=== PATIENT | male | born 1930 | race Caucasian/White ===

== ENCOUNTER 2016-12-06 10:20 | Inpatient (IN) | payer MEDICARE ==
[~2016-12-06] VITALS: Ht 167.6 cm; Wt 65.7 kg
[~2016-12-06 10:20] MED LIST: ALEN70TA3 PO; ASPI-13; ASPI-621 PO; CARV12.52 PO; CARV6.2512 PO; DIGO250T PO; DIGO250T6 PO; DOCU-144 PO; ENAL5TAB PO; FURO20TA3 PO; HYDR-3240 PO; ISOS30TA19 PO; MULT-6 PO; NITR0.4T8 PO; PANT40TA3 PO; PANT40TA5 PO; POTA20TA6 PO; PRAV40TA2 PO; PRAV80TA PO; TAMS-11 PO; VIT1CAPS11 PO
[2016-12-06] MEDS ORDERED: SODIUM CHLORIDE FLUSH 10ML SYR IVF ONE (11:00)
[2016-12-06 11:44] LABS: BLOOD UREA NITROGEN 19 mg/dL (7-18)
[2016-12-06] MEDS ORDERED: SODIUM CHLORIDE FLUSH 10ML SYR IVF PRN (12:00)
[2016-12-06] MEDS ORDERED: VIT1CAPS16 PO (12:12)
[2016-12-06] MEDS ORDERED: morphine SULFATE 10 MG/ML, 1ML IVPush PRN (13:30)
[2016-12-06] MEDS ORDERED: hydrALAzine 20 MG/ML, 1ML IVPush PRN (13:30)
[2016-12-06] MEDS ORDERED: POLYETHYLENE GLYCOL 17 GM PACKET PO PRN (13:30)
[2016-12-06] MEDS ORDERED: MAALOX/HYOSCYAMINE/LIDOCAINE 45 ML BOTTLE PO PRN (13:30)
[2016-12-06] MEDS ORDERED: ONDANSETRON 2MG/ML, 2ML IVPush PRN (13:30)
[2016-12-06] MEDS ORDERED: HYDROcodone/APAP 5/325 TABLET PO PRN (13:30)
[2016-12-06] MEDS ORDERED: DOCUSATE 100 MG CAPSULE PO PRN (13:30)
[2016-12-06] MEDS ORDERED: ALENDRONATE 70 MG TABLET PO SCH (13:30)
[2016-12-06] MEDS ORDERED: ACETAMINOPHEN 325 MG TABLET PO PRN (13:30)
[2016-12-06] MEDS ORDERED: ONDANSETRON ODT 4 MG PO PRN (13:30)
[2016-12-06] MEDS ORDERED: BISACODYL 10 MG SUPP PR PRN (13:30)
[2016-12-06 13:46] VITALS: BP 133/69
[2016-12-06] MEDS ORDERED: FUROSEMIDE 40 MG/4 ML IV ONE (15:00)
[2016-12-06] MEDS ORDERED: ALBUTEROL/IPRATROPIUM 2.5MG/0.5MG, 3 ML NPPB PRN (15:00)
[2016-12-06] MEDS: LEVOFLOXACIN/PMX 750MG/150ML 150 ML IV SCH (16:41)
[2016-12-06] MEDS: PANTOPROZOLE 40MG TABLET PO SCH (16:41)
[2016-12-06] MEDS: ENOXAPARIN 40 MG/0.4 ML SQ SCH (16:41)
[2016-12-06 17:06] LABS: IS PT STATUS REG ER OR PRE ER? NO
[2016-12-06] MEDS: FLUTICASONE/VILANTEROL 100-25MCG/INH INH SCH (18:31)
[2016-12-06 20:00] VITALS: BP 131/72
[2016-12-06] MEDS ORDERED: PANTOPROZOLE 40MG TABLET PO SCH (21:00)
[2016-12-06] MEDS: ALBUTEROL/IPRATROPIUM 2.5MG/0.5MG, 3 ML NPPB SCH (21:20)
[2016-12-06] MEDS: ENALAPRIL 10 MG TABLET PO SCH (21:59)
[2016-12-06] MEDS: CARVEDILOL 12.5 MG TABLET PO SCH (21:59)
[2016-12-06] MEDS: DIGOXIN 0.25 MG TABLET PO SCH (21:59)
[2016-12-06] MEDS: GUAIFENESIN ER 600 MG TABLET PO SCH (21:59)
[2016-12-06] MEDS: PRAVASTATIN 40 MG TABLET PO SCH (22:00)
[2016-12-06 23:49] LABS: IS PT STATUS REG ER OR PRE ER? NO
[2016-12-07] MEDS: TAMSULOSIN 0.4 MG CAP.ER.24H PO SCH ×3 (01:12→21:18)
[2016-12-07 01:25] VITALS: BP 153/78
[2016-12-07 02:00] VITALS: BP 153/78
[2016-12-07 06:40] LABS: BLOOD UREA NITROGEN 19 mg/dL (7-18)
[2016-12-07 06:45] LABS: ASPARTATE AMINO TRANSFERASE 11 U/L (15-37)
[2016-12-07 06:50] VITALS: BP 126/55
[2016-12-07] MEDS: ALBUTEROL/IPRATROPIUM 2.5MG/0.5MG, 3 ML NPPB SCH ×2 (07:01→19:56)
[2016-12-07] MEDS: ASPIRIN 81 MG TABLET EC PO SCH (08:36)
[2016-12-07] MEDS: MULTIVITAMIN 1 TABLET PO SCH (08:36)
[2016-12-07] MEDS: FUROSEMIDE 20 MG TABLET PO SCH (08:36)
[2016-12-07] MEDS: GUAIFENESIN ER 600 MG TABLET PO SCH ×2 (08:36→20:53)
[2016-12-07] MEDS: FLUTICASONE/VILANTEROL 100-25MCG/INH INH SCH (08:36)
[2016-12-07] MEDS: ISOSORBIDE DINITRATE 30 MG TABLET PO SCH (08:36)
[2016-12-07] MEDS: ENALAPRIL 10 MG TABLET PO SCH ×2 (08:36→20:53)
[2016-12-07] MEDS: CARVEDILOL 12.5 MG TABLET PO SCH ×2 (08:36→20:52)
[2016-12-07] MEDS: PANTOPROZOLE 40MG TABLET PO SCH ×2 (08:37→15:12)
[2016-12-07] MEDS ORDERED: TAMSULOSIN 0.4 MG CAP.ER.24H PO SCH (09:00)
[2016-12-07 13:00] VITALS: BP 118/68
[2016-12-07] MEDS: ENOXAPARIN 40 MG/0.4 ML SQ SCH (15:12)
[2016-12-07] MEDS: LEVOFLOXACIN/PMX 750MG/150ML 150 ML IV SCH (16:32)
[2016-12-07 19:26] VITALS: BP 116/44
[2016-12-07] MEDS: DIGOXIN 0.25 MG TABLET PO SCH (20:52)
[2016-12-07] MEDS: PRAVASTATIN 40 MG TABLET PO SCH (20:53)
[2016-12-07 22:25] VITALS: BP 126/64
[2016-12-07] MEDS ORDERED: NITROGLYCERIN 0.4 MG BOTTLE (25 TABS) SL PRN (22:30)
[2016-12-08 02:17] VITALS: BP 122/68
[2016-12-08 05:22] LABS: BLOOD UREA NITROGEN 18 mg/dL (7-18)
[2016-12-08 07:00] VITALS: BP 129/64
[2016-12-08] MEDS: FLUTICASONE/VILANTEROL 100-25MCG/INH INH SCH (08:33)
[2016-12-08] MEDS: CARVEDILOL 12.5 MG TABLET PO SCH ×2 (08:34→20:08)
[2016-12-08] MEDS: PANTOPROZOLE 40MG TABLET PO SCH ×2 (08:34→18:28)
[2016-12-08] MEDS: ISOSORBIDE DINITRATE 30 MG TABLET PO SCH (08:35)
[2016-12-08] MEDS: GUAIFENESIN ER 600 MG TABLET PO SCH ×2 (08:35→20:08)
[2016-12-08] MEDS: ASPIRIN 81 MG TABLET EC PO SCH (08:35)
[2016-12-08] MEDS: MULTIVITAMIN 1 TABLET PO SCH (08:36)
[2016-12-08] MEDS: FUROSEMIDE 20 MG TABLET PO SCH (08:36)
[2016-12-08] MEDS: ENALAPRIL 10 MG TABLET PO SCH ×2 (08:37→20:08)
[2016-12-08] MEDS: ALBUTEROL/IPRATROPIUM 2.5MG/0.5MG, 3 ML NPPB SCH ×2 (09:50→20:08)
[2016-12-08] MEDS ORDERED: TEMAZEPAM 15 MG CAPSULE PO PRN (10:30)
[2016-12-08] MEDS ORDERED: SODIUM CHLORIDE NASAL SPRAY 45ML BOTTLE NAS PRN (10:30)
[2016-12-08] MEDS: COPPER HOMEMEDPO SCH ×2 (11:20→20:34)
[2016-12-08] MEDS: ZNOX HOMEMEDPO SCH ×2 (11:20→20:34)
[2016-12-08] MEDS: VITE AC HOMEMEDPO SCH ×2 (11:20→20:34)
[2016-12-08] MEDS: VIT C HOMEMEDPO SCH ×2 (11:20→20:34)
[2016-12-08] MEDS: [UNRECOGNIZED DRUG - OTHER] HOMEMEDPO SCH ×2 (11:20→20:34)
[2016-12-08] MEDS: LUT HOMEMEDPO SCH ×2 (11:20→20:34)
[2016-12-08 14:16] VITALS: BP 115/50
[2016-12-08] MEDS: ENOXAPARIN 40 MG/0.4 ML SQ SCH (15:20)
[2016-12-08] MEDS: FLUTICASONE NASAL SPRAY 16GM NAS SCH (18:28)
[2016-12-08] MEDS: LEVOFLOXACIN/PMX 750MG/150ML 150 ML IV SCH (18:28)
[2016-12-08 18:39] VITALS: BP 122/42
[2016-12-08] MEDS: DIGOXIN 0.25 MG TABLET PO SCH (20:08)
[2016-12-08] MEDS: PRAVASTATIN 40 MG TABLET PO SCH (20:08)
[2016-12-08] MEDS: TAMSULOSIN 0.4 MG CAP.ER.24H PO SCH (20:08)
[2016-12-09 03:12] VITALS: BP 130/45
[2016-12-09 08:00] VITALS: BP 128/50
[2016-12-09] MEDS: ZNOX HOMEMEDPO SCH (09:07)
[2016-12-09] MEDS: ISOSORBIDE DINITRATE 30 MG TABLET PO SCH (09:07)
[2016-12-09] MEDS: VITE AC HOMEMEDPO SCH (09:07)
[2016-12-09] MEDS: ENALAPRIL 10 MG TABLET PO SCH (09:07)
[2016-12-09] MEDS: COPPER HOMEMEDPO SCH (09:07)
[2016-12-09] MEDS: LUT HOMEMEDPO SCH (09:07)
[2016-12-09] MEDS: MULTIVITAMIN 1 TABLET PO SCH (09:07)
[2016-12-09] MEDS: VIT C HOMEMEDPO SCH (09:07)
[2016-12-09] MEDS: [UNRECOGNIZED DRUG - OTHER] HOMEMEDPO SCH (09:07)
[2016-12-09] MEDS: FLUTICASONE NASAL SPRAY 16GM NAS SCH (09:07)
[2016-12-09] MEDS: GUAIFENESIN ER 600 MG TABLET PO SCH (09:07)
[2016-12-09] MEDS: FUROSEMIDE 20 MG TABLET PO SCH (09:07)
[2016-12-09] MEDS: ASPIRIN 81 MG TABLET EC PO SCH (09:07)
[2016-12-09] MEDS: PANTOPROZOLE 40MG TABLET PO SCH (09:07)
[2016-12-09] MEDS: FLUTICASONE/VILANTEROL 100-25MCG/INH INH SCH (09:08)
[2016-12-09] MEDS: CARVEDILOL 12.5 MG TABLET PO SCH (09:10)
[2016-12-09] MEDS ORDERED: LEVO750T26 PO (09:32)
[2016-12-09] MEDS: ALBUTEROL/IPRATROPIUM 2.5MG/0.5MG, 3 ML NPPB SCH (10:00)
[2016-12-09] MEDS ORDERED: PNEUMOCOCCAL 23 VACCINE IM-VACC ONE (10:30)
[2016-12-09 13:37] VITALS: BP 125/67
[2016-12-09] MEDS ORDERED: ENOXAPARIN 40 MG/0.4 ML SQ SCH (15:00)
[2016-12-14] MEDS ORDERED: ALENDRONATE 70 MG TABLET PO SCH (06:30)
== END 2016-12-09 14:26 | disposition home or self-care (01) | DRG 291 ==
LOC: ED 11:05 → EDIP 11:41 → 5SO 13:38 → 4WST 12-08 13:03 → UNDODISIN 12-09 14:26
PROVIDERS: ADMIT Internal Medicine; ATTEND Family Medicine
DX: I11.0 Hypertensive heart disease with heart failure (principal); J18.9 Pneumonia, unspecified organism; J96.21 Acute and chronic respiratory failure with hypoxia; J44.0 Chronic obstructive pulmonary disease with (acute) lower respiratory infection; E87.3 Alkalosis; I50.42 Chronic combined systolic (congestive) and diastolic (congestive) heart failure; D63.8 Anemia in other chronic diseases classified elsewhere; E87.8 Other disorders of electrolyte and fluid balance, not elsewhere classified; I73.9 Peripheral vascular disease, unspecified; M81.0 Age-related osteoporosis without current pathological fracture; E78.00 Pure hypercholesterolemia, unspecified; E78.5 Hyperlipidemia, unspecified; H35.30 Unspecified macular degeneration; H91.10 Presbycusis, unspecified ear; H91.93 Unspecified hearing loss, bilateral; I25.119 Atherosclerotic heart disease of native coronary artery with unspecified angina pectoris; I25.2 Old myocardial infarction; I25.5 Ischemic cardiomyopathy; I48.0 Paroxysmal atrial fibrillation; K21.9 Gastro-esophageal reflux disease without esophagitis; Z85.46 Personal history of malignant neoplasm of prostate; Z87.891 Personal history of nicotine dependence; Z88.0 Allergy status to penicillin; Z88.2 Allergy status to sulfonamides; Z90.49 Acquired absence of other specified parts of digestive tract; Z95.0 Presence of cardiac pacemaker; Z95.1 Presence of aortocoronary bypass graft; Z99.81 Dependence on supplemental oxygen; I49.5 Sick sinus syndrome; K31.819 Angiodysplasia of stomach and duodenum without bleeding
CPT/HCPCS: 36415; 71010; 80048; 80053; 80162; 81003; 82040; 83605; 83735; 83880; 84145; 84484; 85025; 87040; 87070; 87205; 90732; 93005; 93306; 94640; 99285; J1650; J1940; J1956; J7620

== ENCOUNTER 2017-01-02 10:38 | Inpatient (IN) | payer MEDICARE ==
[~2017-01-02] VITALS: Ht 167.6 cm; Wt 69.3 kg
[~2017-01-02 10:38] MED LIST changes: +LEVO750T26 PO; +VIT1CAPS16 PO
[2017-01-02] MEDS ORDERED: SODIUM CHLORIDE FLUSH 10ML SYR IVF ONE ×2 (11:30→13:00)
[2017-01-02 11:44] LABS: ASPARTATE AMINO TRANSFERASE 18 U/L (15-37); BLOOD UREA NITROGEN 20 mg/dL (7-18)
[2017-01-02] MEDS ORDERED: LEVOFLOXACIN/PMX 750MG/150ML 150 ML ONE (12:30)
[2017-01-02] MEDS ORDERED: CARV6.2512 PO (12:45)
[2017-01-02] MEDS ORDERED: ENAL5TAB PO (12:45)
[2017-01-02] MEDS ORDERED: LEVOFLOXACIN/PMX 750MG/150ML 150 ML IVPB ONE (13:00)
[2017-01-02] MEDS ORDERED: PHARMACY MAY ADJ FOR RENAL FX MC PRN (14:30)
[2017-01-02] MEDS ORDERED: DOCUSATE 100 MG CAPSULE PO PRN (14:30)
[2017-01-02] MEDS ORDERED: POLYETHYLENE GLYCOL 17 GM PACKET PO PRN (14:30)
[2017-01-02] MEDS ORDERED: BISACODYL 10 MG SUPP PR PRN (14:30)
[2017-01-02] MEDS ORDERED: ACETAMINOPHEN 325 MG TABLET PO PRN (14:30)
[2017-01-02] MEDS ORDERED: ONDANSETRON ODT 4 MG PO PRN (14:30)
[2017-01-02] MEDS ORDERED: NITROGLYCERIN 0.4 MG BOTTLE (25 TABS) SL SCH (14:30)
[2017-01-02] MEDS ORDERED: GUAIFENESIN/DM 200-20MG, 10ML UDC PO PRN (14:30)
[2017-01-02] MEDS ORDERED: ALBUTEROL/IPRATROPIUM 2.5MG/0.5MG, 3 ML ONE (15:29)
[2017-01-02] MEDS: ALBUTEROL/IPRATROPIUM 2.5MG/0.5MG, 3 ML NPPB SCH ×2 (15:40→19:24)
[2017-01-02] MEDS: HEPARIN 5,000 UNITS/ML, 1ML SQ SCH ×2 (17:03→22:20)
[2017-01-02 19:03] VITALS: BP 144/62
[2017-01-02] MEDS: TEMPLATE NON-FORMULARY MED. (Vit A/Vit C/Vit E/Zinc/Copper** (Preservision Areds Softgel HOMEMEDPO SCH (21:00)
[2017-01-02] MEDS: DIGOXIN 0.25 MG TABLET PO SCH (22:19)
[2017-01-02] MEDS: DOCUSATE 100 MG CAPSULE PO SCH (22:19)
[2017-01-02] MEDS: ENALAPRIL 5MG TABLET PO SCH (22:19)
[2017-01-02] MEDS: PRAVASTATIN 40 MG TABLET PO SCH (22:20)
[2017-01-02] MEDS: CARVEDILOL 6.25 MG TABLET PO SCH (22:20)
[2017-01-03] VITALS (7 sets, daily range): BP systolic 123–149; BP diastolic 47–66
[2017-01-03] MEDS: HEPARIN 5,000 UNITS/ML, 1ML SQ SCH ×3 (05:22→20:32)
[2017-01-03] MEDS: LEVOFLOXACIN/PMX 500MG/100ML 100 ML IV SCH (05:23)
[2017-01-03 06:12] LABS: BLOOD UREA NITROGEN 17 mg/dL (7-18)
[2017-01-03] MEDS: ALBUTEROL/IPRATROPIUM 2.5MG/0.5MG, 3 ML NPPB SCH ×3 (07:00→18:54)
[2017-01-03] MEDS ORDERED: TAMSULOSIN 0.4 MG CAP.ER.24H PO SCH (09:00)
[2017-01-03] MEDS: TEMPLATE NON-FORMULARY MED. (Vit A/Vit C/Vit E/Zinc/Copper** (Preservision Areds Softgel HOMEMEDPO SCH ×2 (09:00→20:12)
[2017-01-03] MEDS: ASPIRIN 81 MG TABLET EC PO SCH (09:51)
[2017-01-03] MEDS: ISOSORBIDE MONONITRATE ER 30 MG TABLET PO SCH (09:51)
[2017-01-03] MEDS: MULTIVITAMIN 1 TABLET PO SCH (09:51)
[2017-01-03] MEDS: CARVEDILOL 6.25 MG TABLET PO SCH ×2 (09:51→20:32)
[2017-01-03] MEDS: ENALAPRIL 5MG TABLET PO SCH ×2 (09:51→20:11)
[2017-01-03] MEDS: POTASSIUM CHLORIDE 10 MEQ TABLET.ER PO SCH (09:51)
[2017-01-03] MEDS: FUROSEMIDE 20 MG/2 ML IV SCH (09:51)
[2017-01-03 11:21] LABS: IS PT STATUS REG ER OR PRE ER? NO
[2017-01-03] MEDS ORDERED: ALBUTEROL/IPRATROPIUM 2.5MG/0.5MG, 3 ML ONE (14:12)
[2017-01-03 16:20] LABS: IS PT STATUS REG ER OR PRE ER? NO
[2017-01-03] MEDS: DOCUSATE 100 MG CAPSULE PO SCH (20:10)
[2017-01-03] MEDS: PRAVASTATIN 40 MG TABLET PO SCH (20:11)
[2017-01-03] MEDS: DIGOXIN 0.25 MG TABLET PO SCH (20:11)
[2017-01-03] MEDS: TAMSULOSIN 0.4 MG CAP.ER.24H PO SCH (20:50)
[2017-01-04 00:46] VITALS: BP 144/68
[2017-01-04 04:28] VITALS: BP 149/68
[2017-01-04] MEDS: LEVOFLOXACIN/PMX 500MG/100ML 100 ML IV SCH ×2 (04:35→09:02)
[2017-01-04] MEDS: HEPARIN 5,000 UNITS/ML, 1ML SQ SCH ×3 (04:35→20:11)
[2017-01-04 06:03] LABS: BLOOD UREA NITROGEN 17 mg/dL (7-18)
[2017-01-04 06:50] VITALS: BP 134/62
[2017-01-04] MEDS: ALBUTEROL/IPRATROPIUM 2.5MG/0.5MG, 3 ML NPPB SCH ×2 (06:55→19:15)
[2017-01-04] MEDS: TEMPLATE NON-FORMULARY MED. (Vit A/Vit C/Vit E/Zinc/Copper** (Preservision Areds Softgel HOMEMEDPO SCH ×2 (09:00→20:12)
[2017-01-04] MEDS: POTASSIUM CHLORIDE 10 MEQ TABLET.ER PO SCH (09:02)
[2017-01-04] MEDS: MULTIVITAMIN 1 TABLET PO SCH (09:02)
[2017-01-04] MEDS: ENALAPRIL 5MG TABLET PO SCH ×2 (09:02→20:12)
[2017-01-04] MEDS: ISOSORBIDE MONONITRATE ER 30 MG TABLET PO SCH (09:03)
[2017-01-04] MEDS: ASPIRIN 81 MG TABLET EC PO SCH (09:03)
[2017-01-04] MEDS: CARVEDILOL 6.25 MG TABLET PO SCH ×2 (09:03→20:11)
[2017-01-04] MEDS: FUROSEMIDE 20 MG/2 ML IV SCH (09:03)
[2017-01-04 13:24] VITALS: BP 122/56
[2017-01-04 16:36] VITALS: BP 119/64
[2017-01-04 18:14] VITALS: BP 135/56
[2017-01-04] MEDS ORDERED: ALBUTEROL/IPRATROPIUM 2.5MG/0.5MG, 3 ML ONE (19:14)
[2017-01-04] MEDS: PRAVASTATIN 40 MG TABLET PO SCH (20:11)
[2017-01-04] MEDS: TAMSULOSIN 0.4 MG CAP.ER.24H PO SCH (20:11)
[2017-01-04] MEDS: DOCUSATE 100 MG CAPSULE PO SCH (20:11)
[2017-01-04] MEDS ORDERED: TAMSULOSIN 0.4 MG CAP.ER.24H PO SCH ×2 (21:00)
[2017-01-05 01:24] VITALS: BP 150/63
[2017-01-05] MEDS ORDERED: SODIUM CHLORIDE NASAL SPRAY 45ML BOTTLE NAS PRN (03:30)
[2017-01-05] MEDS: HEPARIN 5,000 UNITS/ML, 1ML SQ SCH (04:01)
[2017-01-05 04:04] VITALS: BP 143/65
[2017-01-05] MEDS: ALBUTEROL/IPRATROPIUM 2.5MG/0.5MG, 3 ML NPPB SCH (05:40)
[2017-01-05 08:20] VITALS: BP 157/97
[2017-01-05] MEDS: LEVOFLOXACIN/PMX 500MG/100ML 100 ML IV SCH (08:48)
[2017-01-05] MEDS: ASPIRIN 81 MG TABLET EC PO SCH (08:48)
[2017-01-05] MEDS: CARVEDILOL 6.25 MG TABLET PO SCH (08:49)
[2017-01-05] MEDS: FUROSEMIDE 20 MG/2 ML IV SCH (08:49)
[2017-01-05] MEDS: MULTIVITAMIN 1 TABLET PO SCH (08:50)
[2017-01-05] MEDS: ENALAPRIL 5MG TABLET PO SCH (08:50)
[2017-01-05] MEDS: POTASSIUM CHLORIDE 10 MEQ TABLET.ER PO SCH (08:50)
[2017-01-05] MEDS: ISOSORBIDE MONONITRATE ER 30 MG TABLET PO SCH (08:50)
[2017-01-05] MEDS: TEMPLATE NON-FORMULARY MED. (Vit A/Vit C/Vit E/Zinc/Copper** (Preservision Areds Softgel HOMEMEDPO SCH (08:52)
[2017-01-05] MEDS ORDERED: DIGO250T PO (10:34)
[2017-01-05] MEDS ORDERED: LEVO500T33 PO (10:34)
[2017-01-05] MEDS ORDERED: TAMS-11 PO (10:34)
[2017-01-05] MEDS ORDERED: DIGOXIN 0.25 MG TABLET PO SCH (21:00)
[2017-01-06] MEDS ORDERED: LEVOFLOXACIN 500 MG TABLET PO SCH (08:00)
== END 2017-01-05 12:45 | disposition home or self-care (01) | DRG 291 ==
LOC: ED 12:00 → EDIP 12:01 → ED 12:22 → 4EST 13:34
PROVIDERS: ADMIT Hospitalist; ATTEND Hospitalist
DX: I13.0 Hypertensive heart and chronic kidney disease with heart failure and stage 1 through stage 4 chronic kidney disease, or unspecified chronic kidney disease (principal); I50.43 Acute on chronic combined systolic (congestive) and diastolic (congestive) heart failure; J18.0 Bronchopneumonia, unspecified organism; J96.11 Chronic respiratory failure with hypoxia; J44.0 Chronic obstructive pulmonary disease with (acute) lower respiratory infection; E87.2 Acidosis; E78.5 Hyperlipidemia, unspecified; C61 Malignant neoplasm of prostate; D63.8 Anemia in other chronic diseases classified elsewhere; E78.00 Pure hypercholesterolemia, unspecified; H35.30 Unspecified macular degeneration; Z66 Do not resuscitate; H91.90 Unspecified hearing loss, unspecified ear; I25.10 Atherosclerotic heart disease of native coronary artery without angina pectoris; I48.0 Paroxysmal atrial fibrillation; I73.9 Peripheral vascular disease, unspecified; K21.9 Gastro-esophageal reflux disease without esophagitis; M81.0 Age-related osteoporosis without current pathological fracture; N18.2 Chronic kidney disease, stage 2 (mild); N40.0 Benign prostatic hyperplasia without lower urinary tract symptoms; Z95.0 Presence of cardiac pacemaker; Z88.0 Allergy status to penicillin; Z88.1 Allergy status to other antibiotic agents; Z95.1 Presence of aortocoronary bypass graft; Z99.81 Dependence on supplemental oxygen; Z91.041 Radiographic dye allergy status; Z87.891 Personal history of nicotine dependence
CPT/HCPCS: 36415; 71010; 80048; 80053; 80162; 83735; 83880; 84439; 84443; 84484; 85025; 85610; 85730; 87040; 93005; 94640; 96365; J1644; J1956; J7620; J1940

== ENCOUNTER 2017-02-19 10:26 | Inpatient (IN) | payer MEDICARE ==
[~2017-02-19] VITALS: Ht 167.6 cm; Wt 75.2 kg
[~2017-02-19 10:26] MED LIST changes: -ISOS30TA19 PO; +ISOS30TA21 PO; +LEVO500T47 PO; +NITR0.4T28 PO; -NITR0.4T8 PO
[2017-02-19] MEDS ORDERED: CLIN300C8 PO (10:45)
[2017-02-19] MEDS ORDERED: ASPIRIN 81 MG TABLET CHEW PO ONE (11:00)
[2017-02-19] MEDS ORDERED: ALBUTEROL SULFATE 2.5 MG/3 ML NPPB ONE (11:00)
[2017-02-19] MEDS ORDERED: methylPREDNISolone SOD SUCC 125 MG/2 ML IVP ONE (11:00)
[2017-02-19] MEDS ORDERED: SODIUM CHLORIDE FLUSH 10ML SYR IVF ONE (11:00)
[2017-02-19] MEDS ORDERED: ALBUTEROL SULFATE 2.5 MG/3 ML ONE (11:10)
[2017-02-19 11:17] LABS: HEMATOCRIT 31.8 % (39.2-51.8); HEMOGLOBIN 10.4 g/dL (13.7-18.0)
[2017-02-19 11:28] LABS: BLOOD UREA NITROGEN 25 mg/dL (7-18)
[2017-02-19] MEDS ORDERED: FUROSEMIDE 40 MG/4 ML IV ONE (11:30)
[2017-02-19] MEDS ORDERED: FUROSEMIDE 40 MG/4 ML ONE (12:12)
[2017-02-19] MEDS ORDERED: methylPREDNISolone SOD SUCC 125 MG/2 ML ONE (12:12)
[2017-02-19] MEDS ORDERED: ASPIRIN 81 MG TABLET CHEW ONE (12:13)
[2017-02-19] MEDS ORDERED: LABETALOL 5MG/ML, 20ML IVPush PRN (13:30)
[2017-02-19] MEDS ORDERED: ONDANSETRON ODT 4 MG PO PRN (13:30)
[2017-02-19] MEDS ORDERED: ONDANSETRON 2MG/ML, 2ML IVPush PRN (13:30)
[2017-02-19] MEDS ORDERED: NITROGLYCERIN 0.4 MG/SPRAY SL PRN (13:30)
[2017-02-19] MEDS ORDERED: ACETAMINOPHEN 325 MG TABLET PO PRN (13:30)
[2017-02-19 13:33] LABS: IS PT STATUS REG ER OR PRE ER? YES
[2017-02-19 14:28] VITALS: BP 145/72
[2017-02-19] MEDS: ALBUTEROL/IPRATROPIUM 2.5MG/0.5MG, 3 ML NPPB SCH ×2 (15:00→20:00)
[2017-02-19] MEDS: FUROSEMIDE 40 MG/4 ML IV SCH (16:23)
[2017-02-19] MEDS: LACTOBACILLUS CHEW TABLET PO SCH ×2 (16:23→21:30)
[2017-02-19] MEDS: ENOXAPARIN 40 MG/0.4 ML SQ SCH (16:23)
[2017-02-19] MEDS: CLINDAMYCIN 300 MG CAPSULE PO SCH ×2 (17:29→21:31)
[2017-02-19] MEDS: methylPREDNISolone SOD SUCC 125 MG/2 ML IVPush SCH (17:30)
[2017-02-19 19:12] VITALS: BP 138/73
[2017-02-19] MEDS ORDERED: methylPREDNISolone SOD SUCC 125 MG/2 ML IVPush SCH (20:30)
[2017-02-19] MEDS: DOCUSATE 100 MG CAPSULE PO SCH (21:30)
[2017-02-19] MEDS: CARVEDILOL 6.25 MG TABLET PO SCH (21:30)
[2017-02-19] MEDS: ENALAPRIL 5MG TABLET PO SCH (21:31)
[2017-02-19] MEDS: DIGOXIN 0.125 MG TABLET PO SCH (21:31)
[2017-02-19] MEDS: PANTOPROZOLE 40MG TABLET PO SCH (21:31)
[2017-02-19] MEDS: PRAVASTATIN 40 MG TABLET PO SCH (21:31)
[2017-02-20] MEDS: methylPREDNISolone SOD SUCC 125 MG/2 ML IVPush SCH ×5 (00:24→23:31)
[2017-02-20 01:00] VITALS: BP 153/67
[2017-02-20] MEDS: CLINDAMYCIN 300 MG CAPSULE PO SCH ×5 (05:36→23:32)
[2017-02-20 05:40] LABS: HEMATOCRIT 30.2 % (39.2-51.8); HEMOGLOBIN 9.9 g/dL (13.7-18.0); WHITE BLOOD COUNT 3.4 x10^3/uL (3.4-10)
[2017-02-20 05:51] LABS: BLOOD UREA NITROGEN 26 mg/dL (7-18)
[2017-02-20 05:57] LABS: ASPARTATE AMINO TRANSFERASE 16 U/L (15-37)
[2017-02-20 07:51] VITALS: BP 146/77
[2017-02-20] MEDS ORDERED: CLINDAMYCIN 300 MG CAPSULE PO SCH (09:00)
[2017-02-20] MEDS: CARVEDILOL 6.25 MG TABLET PO SCH ×2 (09:29→20:16)
[2017-02-20] MEDS: PANTOPROZOLE 40MG TABLET PO SCH ×2 (09:29→20:18)
[2017-02-20] MEDS: ASPIRIN 81 MG TABLET EC PO SCH (09:29)
[2017-02-20] MEDS: LACTOBACILLUS CHEW TABLET PO SCH ×3 (09:29→20:18)
[2017-02-20] MEDS: ENALAPRIL 5MG TABLET PO SCH ×2 (09:29→20:18)
[2017-02-20] MEDS: FUROSEMIDE 40 MG/4 ML IV SCH ×2 (09:29→17:34)
[2017-02-20] MEDS: MULTIVITAMIN 1 TABLET PO SCH (09:29)
[2017-02-20] MEDS: ISOSORBIDE DINITRATE 30 MG TABLET PO SCH (09:30)
[2017-02-20] MEDS: ALBUTEROL/IPRATROPIUM 2.5MG/0.5MG, 3 ML NPPB SCH ×2 (11:10→20:45)
[2017-02-20 15:45] VITALS: BP 126/63
[2017-02-20] MEDS: ENOXAPARIN 40 MG/0.4 ML SQ SCH (15:53)
[2017-02-20] MEDS ORDERED: DIPHENHYDRAMINE 50 MG CAPSULE PO SCH (17:30)
[2017-02-20 19:29] VITALS: BP 125/70
[2017-02-20] MEDS ORDERED: OMNIPAQUE 350 MG/ML, 100ML BOTTLE ONE (19:42)
[2017-02-20] MEDS: DOCUSATE 100 MG CAPSULE PO SCH (20:15)
[2017-02-20] MEDS: DIGOXIN 0.125 MG TABLET PO SCH (20:18)
[2017-02-20] MEDS: TAMSULOSIN 0.4 MG CAP.ER.24H PO SCH (20:18)
[2017-02-20] MEDS: PRAVASTATIN 40 MG TABLET PO SCH (20:18)
[2017-02-21] MEDS: CLINDAMYCIN 300 MG CAPSULE PO SCH ×3 (05:30→20:01)
[2017-02-21] MEDS: methylPREDNISolone SOD SUCC 125 MG/2 ML IVPush SCH (06:30)
[2017-02-21] MEDS: MULTIVITAMIN 1 TABLET PO SCH (08:15)
[2017-02-21] MEDS: ISOSORBIDE DINITRATE 30 MG TABLET PO SCH (08:15)
[2017-02-21] MEDS: PANTOPROZOLE 40MG TABLET PO SCH ×2 (08:15→20:02)
[2017-02-21] MEDS: CARVEDILOL 6.25 MG TABLET PO SCH ×2 (08:15→20:02)
[2017-02-21] MEDS: ENALAPRIL 5MG TABLET PO SCH ×2 (08:15→20:02)
[2017-02-21] MEDS: ASPIRIN 81 MG TABLET EC PO SCH (08:15)
[2017-02-21] MEDS: LACTOBACILLUS CHEW TABLET PO SCH ×3 (08:15→20:02)
[2017-02-21] MEDS: FUROSEMIDE 40 MG/4 ML IV SCH (08:15)
[2017-02-21] MEDS: ALBUTEROL/IPRATROPIUM 2.5MG/0.5MG, 3 ML NPPB SCH ×2 (09:00→20:34)
[2017-02-21] MEDS ORDERED: FUROSEMIDE 40 MG/4 ML IV SCH (09:00)
[2017-02-21] MEDS ORDERED: FUROSEMIDE 40 MG/4 ML IV ONE (09:30)
[2017-02-21] MEDS: morphine SULFATE 10 MG/ML, 1ML IVPush PRN ×2 (11:42→22:14)
[2017-02-21] MEDS: DOCUSATE 100 MG CAPSULE PO SCH (11:42)
[2017-02-21 13:05] VITALS: BP 129/68
[2017-02-21] MEDS: SPIRONOLACTONE 25 MG TABLET PO SCH (14:44)
[2017-02-21] MEDS: ENOXAPARIN 40 MG/0.4 ML SQ SCH (14:48)
[2017-02-21] MEDS ORDERED: CALCIUM CARBONATE 500 MG TAB.CHEW PO PRN (18:00)
[2017-02-21] MEDS ORDERED: ALUMINUM/MAG/SIMETHICONE 30 ML UDC PO PRN (18:00)
[2017-02-21 19:38] VITALS: BP 116/72
[2017-02-21 19:58] VITALS: BP 131/82
[2017-02-21] MEDS: DIGOXIN 0.125 MG TABLET PO SCH (20:02)
[2017-02-21] MEDS: PRAVASTATIN 40 MG TABLET PO SCH (20:02)
[2017-02-21] MEDS: TAMSULOSIN 0.4 MG CAP.ER.24H PO SCH (20:02)
[2017-02-21] MEDS: MAGNESIUM HYDROXIDE 8%, 30ML UDC PO PRN (20:03)
[2017-02-21 20:05] VITALS: BP 130/75
[2017-02-21 22:31] LABS: IS PT STATUS REG ER OR PRE ER? NO
[2017-02-22 01:39] VITALS: BP 128/71
[2017-02-22] MEDS: CLINDAMYCIN 300 MG CAPSULE PO SCH ×5 (02:12→23:39)
[2017-02-22] MEDS ORDERED: ALENDRONATE 70 MG TABLET PO SCH (06:30)
[2017-02-22] MEDS: ALBUTEROL/IPRATROPIUM 2.5MG/0.5MG, 3 ML NPPB SCH ×2 (06:51→19:43)
[2017-02-22 07:14] VITALS: BP 120/73
[2017-02-22 07:50] LABS: IS PT STATUS REG ER OR PRE ER? NO
[2017-02-22] MEDS: MULTIVITAMIN 1 TABLET PO SCH (08:18)
[2017-02-22] MEDS: PANTOPROZOLE 40MG TABLET PO SCH ×2 (08:18→20:07)
[2017-02-22] MEDS: FUROSEMIDE 40 MG TABLET PO SCH ×2 (08:19→09:00)
[2017-02-22] MEDS: SPIRONOLACTONE 25 MG TABLET PO SCH (08:19)
[2017-02-22] MEDS: ENALAPRIL 5MG TABLET PO SCH ×2 (08:19→20:08)
[2017-02-22] MEDS: FUROSEMIDE 40 MG/4 ML IV SCH (08:20)
[2017-02-22] MEDS: ASPIRIN 81 MG TABLET EC PO SCH (08:21)
[2017-02-22] MEDS: TAMSULOSIN 0.4 MG CAP.ER.24H PO SCH ×2 (08:22→20:12)
[2017-02-22] MEDS: ISOSORBIDE DINITRATE 30 MG TABLET PO SCH (08:22)
[2017-02-22] MEDS: LACTOBACILLUS CHEW TABLET PO SCH ×3 (08:22→20:07)
[2017-02-22 08:33] LABS: HEMATOCRIT 30.7 % (39.2-51.8); HEMOGLOBIN 10.1 g/dL (13.7-18.0); WHITE BLOOD COUNT 9.3 x10^3/uL (3.4-10)
[2017-02-22 08:41] LABS: BLOOD UREA NITROGEN 41 mg/dL (7-18)
[2017-02-22] MEDS: CARVEDILOL 12.5 MG TABLET PO SCH ×2 (09:00→20:08)
[2017-02-22] MEDS ORDERED: CARVEDILOL 6.25 MG TABLET PO SCH (09:00)
[2017-02-22 13:58] VITALS: BP 112/57
[2017-02-22] MEDS: ENOXAPARIN 40 MG/0.4 ML SQ SCH (15:05)
[2017-02-22 19:04] VITALS: BP 109/61
[2017-02-22] MEDS: DIGOXIN 0.125 MG TABLET PO SCH (20:07)
[2017-02-22] MEDS: DOCUSATE 100 MG CAPSULE PO SCH (20:07)
[2017-02-22] MEDS: PRAVASTATIN 40 MG TABLET PO SCH (20:07)
[2017-02-22] MEDS: MAGNESIUM HYDROXIDE 8%, 30ML UDC PO PRN (20:49)
[2017-02-23 01:52] VITALS: BP 125/68
[2017-02-23 06:05] LABS: IS PT STATUS REG ER OR PRE ER? NO
[2017-02-23 06:47] VITALS: BP 123/76
[2017-02-23] MEDS: PANTOPROZOLE 40MG TABLET PO SCH ×2 (08:04→20:11)
[2017-02-23] MEDS: SPIRONOLACTONE 25 MG TABLET PO SCH (08:04)
[2017-02-23] MEDS: MULTIVITAMIN 1 TABLET PO SCH (08:04)
[2017-02-23] MEDS: ENALAPRIL 5MG TABLET PO SCH ×2 (08:04→20:11)
[2017-02-23] MEDS: CARVEDILOL 12.5 MG TABLET PO SCH ×2 (08:04→20:10)
[2017-02-23] MEDS: ISOSORBIDE DINITRATE 30 MG TABLET PO SCH (08:04)
[2017-02-23] MEDS: ASPIRIN 81 MG TABLET EC PO SCH (08:04)
[2017-02-23] MEDS: LACTOBACILLUS CHEW TABLET PO SCH ×3 (08:05→20:10)
[2017-02-23] MEDS: FUROSEMIDE 40 MG TABLET PO SCH (08:05)
[2017-02-23] MEDS: FUROSEMIDE 40 MG/4 ML IV SCH (08:06)
[2017-02-23] MEDS: CLINDAMYCIN 300 MG CAPSULE PO SCH ×3 (08:10→20:08)
[2017-02-23] MEDS: ALBUTEROL/IPRATROPIUM 2.5MG/0.5MG, 3 ML NPPB SCH ×2 (09:25→20:28)
[2017-02-23 12:39] VITALS: BP 121/67
[2017-02-23] MEDS: ENOXAPARIN 40 MG/0.4 ML SQ SCH (15:35)
[2017-02-23 19:04] VITALS: BP 134/75
[2017-02-23] MEDS: DIGOXIN 0.125 MG TABLET PO SCH (20:10)
[2017-02-23] MEDS: DOCUSATE 100 MG CAPSULE PO SCH (20:10)
[2017-02-23] MEDS: PRAVASTATIN 40 MG TABLET PO SCH (20:11)
[2017-02-23] MEDS: TAMSULOSIN 0.4 MG CAP.ER.24H PO SCH (20:13)
[2017-02-24] MEDS: CLINDAMYCIN 300 MG CAPSULE PO SCH ×3 (01:44→09:15)
[2017-02-24 02:35] VITALS: BP 131/74
[2017-02-24 05:37] LABS: IS PT STATUS REG ER OR PRE ER? NO
[2017-02-24 05:50] LABS: BLOOD UREA NITROGEN 35 mg/dL (7-18)
[2017-02-24 07:38] VITALS: BP 130/80
[2017-02-24] MEDS: FUROSEMIDE 40 MG TABLET PO SCH (08:52)
[2017-02-24] MEDS: SPIRONOLACTONE 25 MG TABLET PO SCH (08:52)
[2017-02-24] MEDS: CARVEDILOL 12.5 MG TABLET PO SCH (08:53)
[2017-02-24] MEDS: LACTOBACILLUS CHEW TABLET PO SCH (08:54)
[2017-02-24] MEDS: ASPIRIN 81 MG TABLET EC PO SCH (08:54)
[2017-02-24] MEDS: ISOSORBIDE DINITRATE 30 MG TABLET PO SCH (08:54)
[2017-02-24] MEDS: ENALAPRIL 5MG TABLET PO SCH (08:55)
[2017-02-24] MEDS: MULTIVITAMIN 1 TABLET PO SCH (08:55)
[2017-02-24] MEDS: PANTOPROZOLE 40MG TABLET PO SCH (08:55)
[2017-02-24] MEDS: FUROSEMIDE 40 MG/4 ML IV SCH (09:12)
[2017-02-24] MEDS ORDERED: CARV12.543 PO (11:34)
[2017-02-24] MEDS ORDERED: FURO40TA6 PO (11:34)
[2017-02-24] MEDS ORDERED: SPIR25TA PO (11:34)
[2017-02-24] MEDS ORDERED: ACID1TAB7 PO (11:34)
[2017-02-24] MEDS ORDERED: POTA10TA6 PO (11:34)
[2017-02-24] MEDS ORDERED: PRED10TA14 PO (11:45)
[2017-02-24] MEDS ORDERED: FLUT1AER INH (11:45)
[2017-02-24] MEDS ORDERED: TIOT18CA INH (11:45)
[2017-02-24 12:48] VITALS: BP 102/62
== END 2017-02-24 14:02 | disposition home health service (06) | DRG 280 ==
LOC: ED 10:29 → EDIP 12:06 → 5SO 14:18
PROVIDERS: ADMIT Hospitalist; ATTEND Hospitalist
DX: I50.43 Acute on chronic combined systolic (congestive) and diastolic (congestive) heart failure (principal); J96.21 Acute and chronic respiratory failure with hypoxia; I21.4 Non-ST elevation (NSTEMI) myocardial infarction; E87.8 Other disorders of electrolyte and fluid balance, not elsewhere classified; L03.115 Cellulitis of right lower limb; E87.1 Hypo-osmolality and hyponatremia; I27.2 Other secondary pulmonary hypertension; J44.1 Chronic obstructive pulmonary disease with (acute) exacerbation; I25.10 Atherosclerotic heart disease of native coronary artery without angina pectoris; D53.9 Nutritional anemia, unspecified; E78.00 Pure hypercholesterolemia, unspecified; H35.30 Unspecified macular degeneration; I08.1 Rheumatic disorders of both mitral and tricuspid valves; I73.9 Peripheral vascular disease, unspecified; K21.9 Gastro-esophageal reflux disease without esophagitis; M81.0 Age-related osteoporosis without current pathological fracture; N40.0 Benign prostatic hyperplasia without lower urinary tract symptoms; Z66 Do not resuscitate; H91.90 Unspecified hearing loss, unspecified ear; I25.5 Ischemic cardiomyopathy; I11.0 Hypertensive heart disease with heart failure; Z87.01 Personal history of pneumonia (recurrent); I25.2 Old myocardial infarction; Z82.49 Family history of ischemic heart disease and other diseases of the circulatory system; Z85.46 Personal history of malignant neoplasm of prostate; Z87.891 Personal history of nicotine dependence; Z90.49 Acquired absence of other specified parts of digestive tract; Z95.0 Presence of cardiac pacemaker; Z95.5 Presence of coronary angioplasty implant and graft; Z99.81 Dependence on supplemental oxygen; Z88.0 Allergy status to penicillin; Z88.2 Allergy status to sulfonamides; Z88.1 Allergy status to other antibiotic agents; Z91.041 Radiographic dye allergy status
CPT/HCPCS: 36415; 71010; 80048; 80053; 80162; 82040; 83735; 83880; 84100; 84484; 85025; 93005; 93306; 94640; 96374; 96375; J1650; J1940; J7613; J7620; Q0162; Q9967; J2270; J2930; J7512

== ENCOUNTER 2018-05-31 10:27 | Inpatient (IN) | payer MEDICARE ==
[~2018-05-31] VITALS: Ht 165.1 cm; Wt 64.9 kg
[~2018-05-31 10:27] MED LIST changes: +ACID1TAB7 PO; -ASPI-621 PO; +ASPI81TA45 PO; +CARV12.543 PO; +CLIN300C8 PO; +FLUT1AER INH; +FURO40TA6 PO; +POTA10TA6 PO; +PRED10TA14 PO; +SPIR25TA PO; +TIOT18CA INH
[2018-05-31] MEDS ORDERED: ALBUTEROL SULFATE 2.5 MG/3 ML ONE (11:19)
[2018-05-31] MEDS ORDERED: ALBUTEROL SULFATE 2.5 MG/3 ML NPPB ONE (11:20)
[2018-05-31] MEDS ORDERED: SODIUM CHLORIDE FLUSH 10ML SYR IVF ONE (11:30)
[2018-05-31 11:37] LABS: RAPID INFLUENZA A Negative (Negative); RAPID INFLUENZA B Negative (Negative)
[2018-05-31 11:37] LABS: BASOPHILS % (AUTO) 0 % (0-1); EOSINOPHILS # (AUTO) 0.13 x10^3/uL (0-0.4); EOSINOPHILS % (AUTO) 3 % (1-7); LYMPHOCYTES # (AUTO) 0.18 x10^3/uL (1-3.4); LYMPHOCYTES % (AUTO) 4 % (22-44); MD NO; MEAN CORPUSCULAR HEMOGLOBIN 33.3 pg (27.5-34.5); MEAN CORPUSCULAR HGB CONC 32.7 g/dL (33.2-36.2); MEAN CORPUSCULAR VOLUME 101.8 fL (81-97); MEAN PLATELET VOLUME 8.3 fL (7.4-10.4); MONOCYTES # (AUTO) 0.55 x10^3/uL (0.2-0.8); MONOCYTES % (AUTO) 11 % (2-9); NEUTROPHILS # (AUTO) 4.27 x10^3/uL (1.8-6.8); NEUTROPHILS % (AUTO) 83 % (42-75); PLATELET COUNT 144 x10^3/uL (130-400); RED BLOOD COUNT 2.97 x10^6/uL (4.38-5.82); RED CELL DISTRIBUTION WIDTH 13.9 % (9.4-14.8)
[2018-05-31 11:47] LABS: ALANINE AMINOTRANSFERASE 26 U/L (12-78); ALBUMIN 3.1 g/dL (3.4-5.0); ANION GAP 8 mmol/L (5-15); CALCIUM 8.7 mg/dL (8.5-10.1); CHLORIDE 100 mmol/L (98-107); CREATININE 1.22 mg/dL (0.7-1.3)
[2018-05-31 11:52] LABS: ALKALINE PHOSPHATASE 157 U/L (45-117); BILIRUBIN,TOTAL 0.8 mg/dL (0.2-1.0); TOTAL PROTEIN 7.1 g/dL (6.4-8.2); TROPONIN I 0.021 ng/mL (0.000-0.045)
[2018-05-31] MEDS ORDERED: LEVOFLOXACIN/PMX 750MG/150ML 150 ML IV ONE (12:30)
[2018-05-31] MEDS ORDERED: LEVOFLOXACIN/PMX 750MG/150ML 150 ML ONE (12:36)
[2018-05-31] MEDS ORDERED: KETOROLAC 30 MG/1 ML IV PRN (14:00)
[2018-05-31] MEDS ORDERED: DOCUSATE 100 MG CAPSULE PO PRN (14:00)
[2018-05-31] MEDS ORDERED: ACETAMINOPHEN 325 MG TABLET PO PRN (14:00)
[2018-05-31] MEDS ORDERED: ONDANSETRON 2MG/ML, 2ML IVPush PRN (14:00)
[2018-05-31] MEDS ORDERED: POLYETHYLENE GLYCOL 17 GM PACKET PO PRN (14:00)
[2018-05-31] MEDS ORDERED: BISACODYL 10 MG SUPP PR PRN (14:00)
[2018-05-31] MEDS ORDERED: FUROSEMIDE 40 MG/4 ML IV ONE (14:00)
[2018-05-31] MEDS ORDERED: LABETALOL 5MG/ML, 20ML IVPush PRN (14:00)
[2018-05-31] MEDS ORDERED: HEPARIN 5,000 UNITS/ML, 1ML ONE (15:17)
[2018-05-31] MEDS: HEPARIN 5,000 UNITS/ML, 1ML SQ SCH (15:22)
[2018-05-31 15:25] VITALS: BP 109/61
[2018-05-31] MEDS: DOXYCYCLINE 100 MG in DEXTROSE 5% 250 ML IV SCH (17:00)
[2018-05-31 18:24] LABS: TROPONIN I 0.029 ng/mL (0.000-0.045)
[2018-05-31] MEDS ORDERED: ALBUTEROL/IPRATROPIUM 2.5MG/0.5MG, 3 ML ONE (18:46)
[2018-05-31] MEDS: ALBUTEROL/IPRATROPIUM 2.5MG/0.5MG, 3 ML NPPB SCH (18:55)
[2018-05-31 19:56] VITALS: BP 107/65
[2018-05-31] MEDS ORDERED: ENALAPRIL 10 MG TABLET ONE (20:19)
[2018-05-31] MEDS: SODIUM CHLORIDE FLUSH 10ML SYR IVF SCH (20:23)
[2018-05-31] MEDS: DOCUSATE 100 MG CAPSULE PO SCH (20:23)
[2018-05-31] MEDS: CARVEDILOL 12.5 MG TABLET PO SCH (20:24)
[2018-05-31] MEDS: PRAVASTATIN 40 MG TABLET PO SCH (20:25)
[2018-05-31] MEDS: DIGOXIN 0.25 MG TABLET PO SCH (20:25)
[2018-05-31] MEDS: PANTOPROZOLE 40MG TABLET PO SCH (20:26)
[2018-05-31] MEDS: ENALAPRIL 5MG TABLET PO SCH (20:26)
[2018-05-31] MEDS: TAMSULOSIN 0.4 MG CAP.ER.24H PO SCH (20:43)
[2018-06-01 00:11] LABS: TROPONIN I < 0.015 ng/mL (0.000-0.045)
[2018-06-01] MEDS: HEPARIN 5,000 UNITS/ML, 1ML SQ SCH ×3 (00:27→18:43)
[2018-06-01 03:00] VITALS: BP 128/74
[2018-06-01 05:03] LABS: ANION GAP 6 mmol/L (5-15); CALCIUM 8.8 mg/dL (8.5-10.1); CHLORIDE 99 mmol/L (98-107); CREATININE 1.27 mg/dL (0.7-1.3)
[2018-06-01 05:16] LABS: BASOPHILS % (AUTO) 0 % (0-1); EOSINOPHILS % (AUTO) 0 % (1-7); LYMPHOCYTES # (AUTO) 0.16 x10^3/uL (1-3.4); LYMPHOCYTES % (AUTO) 4 % (22-44); MD NO; MEAN CORPUSCULAR HEMOGLOBIN 33.7 pg (27.5-34.5); MEAN CORPUSCULAR HGB CONC 33.2 g/dL (33.2-36.2); MEAN CORPUSCULAR VOLUME 101.6 fL (81-97); MEAN PLATELET VOLUME 8.7 fL (7.4-10.4); MONOCYTES # (AUTO) 0.18 x10^3/uL (0.2-0.8); MONOCYTES % (AUTO) 5 % (2-9); NEUTROPHILS # (AUTO) 3.66 x10^3/uL (1.8-6.8); NEUTROPHILS % (AUTO) 91 % (42-75); PLATELET COUNT 142 x10^3/uL (130-400); RED BLOOD COUNT 3.22 x10^6/uL (4.38-5.82); RED CELL DISTRIBUTION WIDTH 13.8 % (9.4-14.8)
[2018-06-01] MEDS: DOXYCYCLINE 100 MG in DEXTROSE 5% 250 ML IV SCH ×2 (05:58→18:43)
[2018-06-01] MEDS: ALBUTEROL/IPRATROPIUM 2.5MG/0.5MG, 3 ML NPPB SCH ×4 (07:00→19:37)
[2018-06-01] MEDS: SPIRONOLACTONE 25 MG TABLET PO SCH (09:00)
[2018-06-01] MEDS ORDERED: TAMSULOSIN 0.4 MG CAP.ER.24H PO SCH (09:00)
[2018-06-01] MEDS: ASPIRIN 81 MG TABLET EC PO SCH (09:02)
[2018-06-01] MEDS: POTASSIUM CHLORIDE 10 MEQ TABLET.ER PO SCH (09:03)
[2018-06-01] MEDS: PANTOPROZOLE 40MG TABLET PO SCH ×2 (09:04→21:56)
[2018-06-01] MEDS: TAMSULOSIN 0.4 MG CAP.ER.24H PO SCH (09:05)
[2018-06-01] MEDS: ISOSORBIDE DINITRATE 30 MG TABLET PO SCH (09:06)
[2018-06-01] MEDS: ENALAPRIL 5MG TABLET PO SCH ×2 (09:06→21:56)
[2018-06-01] MEDS: MULTIVITAMIN 1 TABLET PO SCH (09:07)
[2018-06-01] MEDS: CARVEDILOL 12.5 MG TABLET PO SCH ×2 (09:07→21:56)
[2018-06-01] MEDS: FUROSEMIDE 40 MG/4 ML IV SCH (09:09)
[2018-06-01] MEDS: SODIUM CHLORIDE FLUSH 10ML SYR IVF SCH ×2 (09:16→22:03)
[2018-06-01 09:30] VITALS: BP 107/58
[2018-06-01 20:16] VITALS: BP 113/58
[2018-06-01] MEDS: DIGOXIN 0.25 MG TABLET PO SCH (21:56)
[2018-06-01] MEDS: DOCUSATE 100 MG CAPSULE PO SCH (21:56)
[2018-06-01] MEDS: PRAVASTATIN 40 MG TABLET PO SCH (21:56)
[2018-06-02] MEDS: HEPARIN 5,000 UNITS/ML, 1ML SQ SCH ×3 (00:38→17:37)
[2018-06-02 02:02] VITALS: BP 123/73
[2018-06-02] MEDS: ALBUTEROL/IPRATROPIUM 2.5MG/0.5MG, 3 ML NPPB SCH ×4 (08:00→19:08)
[2018-06-02 08:22] VITALS: BP 101/58
[2018-06-02] MEDS: ASPIRIN 81 MG TABLET EC PO SCH (08:30)
[2018-06-02] MEDS: SPIRONOLACTONE 25 MG TABLET PO SCH (08:30)
[2018-06-02] MEDS: CARVEDILOL 12.5 MG TABLET PO SCH ×2 (08:30→21:28)
[2018-06-02] MEDS: POTASSIUM CHLORIDE 10 MEQ TABLET.ER PO SCH (08:31)
[2018-06-02] MEDS: PANTOPROZOLE 40MG TABLET PO SCH ×2 (08:31→21:27)
[2018-06-02] MEDS: ENALAPRIL 5MG TABLET PO SCH ×2 (08:31→21:26)
[2018-06-02] MEDS: ISOSORBIDE DINITRATE 30 MG TABLET PO SCH (08:31)
[2018-06-02] MEDS: FUROSEMIDE 40 MG/4 ML IV SCH (08:31)
[2018-06-02] MEDS: MULTIVITAMIN 1 TABLET PO SCH (08:31)
[2018-06-02] MEDS: DOXYCYCLINE 100 MG in DEXTROSE 5% 250 ML IV SCH ×2 (08:32→18:15)
[2018-06-02] MEDS: SODIUM CHLORIDE FLUSH 10ML SYR IVF SCH ×2 (08:38→21:28)
[2018-06-02 12:17] LABS: MEAN CORPUSCULAR HEMOGLOBIN 34.3 pg (27.5-34.5); MEAN CORPUSCULAR HGB CONC 33.4 g/dL (33.2-36.2); MEAN CORPUSCULAR VOLUME 102.6 fL (81-97); MEAN PLATELET VOLUME 8.4 fL (7.4-10.4); PLATELET COUNT 159 x10^3/uL (130-400); RED BLOOD COUNT 2.77 x10^6/uL (4.38-5.82); RED CELL DISTRIBUTION WIDTH 13.9 % (9.4-14.8)
[2018-06-02 12:30] LABS: BASOPHILS % (AUTO) 0 % (0-1); EOSINOPHILS # (AUTO) 0.04 x10^3/uL (0-0.4); EOSINOPHILS % (AUTO) 1 % (1-7); LYMPHOCYTES # (AUTO) 0.23 x10^3/uL (1-3.4); LYMPHOCYTES % (AUTO) 3 % (22-44); MD SCAN; MONOCYTES # (AUTO) 0.66 x10^3/uL (0.2-0.8); MONOCYTES % (AUTO) 8 % (2-9); NEUTROPHILS # (AUTO) 7.22 x10^3/uL (1.8-6.8); NEUTROPHILS % (AUTO) 89 % (42-75)
[2018-06-02 12:31] LABS: ANION GAP 7 mmol/L (5-15); CALCIUM 8.8 mg/dL (8.5-10.1); CHLORIDE 99 mmol/L (98-107); CREATININE 1.23 mg/dL (0.7-1.3)
[2018-06-02] MEDS ORDERED: POTASSIUM CHLORIDE 20 MEQ TAB.ER.PRT PO ONE (14:00)
[2018-06-02 14:50] VITALS: BP 117/63
[2018-06-02 19:27] VITALS: BP 118/55
[2018-06-02] MEDS ORDERED: TAMSULOSIN 0.4 MG CAP.ER.24H PO SCH (21:00)
[2018-06-02] MEDS: PRAVASTATIN 40 MG TABLET PO SCH (21:26)
[2018-06-02] MEDS: DIGOXIN 0.25 MG TABLET PO SCH (21:27)
[2018-06-02] MEDS: DOCUSATE 100 MG CAPSULE PO SCH (21:27)
[2018-06-03] MEDS: HEPARIN 5,000 UNITS/ML, 1ML SQ SCH ×2 (00:43→08:30)
[2018-06-03 01:31] VITALS: BP 119/63
[2018-06-03 06:08] LABS: ANION GAP 4 mmol/L (5-15); CALCIUM 8.7 mg/dL (8.5-10.1); CHLORIDE 104 mmol/L (98-107); CREATININE 1.04 mg/dL (0.7-1.3)
[2018-06-03 06:52] VITALS: BP 123/71
[2018-06-03] MEDS ORDERED: DOXYCYCLINE 100MG TABLET PO SCH (07:00)
[2018-06-03] MEDS: ALBUTEROL/IPRATROPIUM 2.5MG/0.5MG, 3 ML NPPB SCH ×2 (07:20→12:00)
[2018-06-03] MEDS ORDERED: FUROSEMIDE 40 MG TABLET PO SCH (09:00)
[2018-06-03] MEDS: ENALAPRIL 5MG TABLET PO SCH (09:37)
[2018-06-03] MEDS: ISOSORBIDE DINITRATE 30 MG TABLET PO SCH (09:37)
[2018-06-03] MEDS: PANTOPROZOLE 40MG TABLET PO SCH (09:37)
[2018-06-03] MEDS: MULTIVITAMIN 1 TABLET PO SCH (09:38)
[2018-06-03] MEDS: ASPIRIN 81 MG TABLET EC PO SCH (09:38)
[2018-06-03] MEDS: POTASSIUM CHLORIDE 10 MEQ TABLET.ER PO SCH (09:38)
[2018-06-03] MEDS: SPIRONOLACTONE 25 MG TABLET PO SCH (09:38)
[2018-06-03] MEDS: CARVEDILOL 12.5 MG TABLET PO SCH (09:38)
[2018-06-03] MEDS ORDERED: DOXY100T PO (10:21)
[2018-06-03] MEDS: SODIUM CHLORIDE FLUSH 10ML SYR IVF SCH (10:24)
[2018-06-06] MEDS ORDERED: ALENDRONATE 70 MG TABLET PO SCH (14:00)
== END 2018-06-03 13:47 | disposition home health service (06) | DRG 291 ==
LOC: ED 12:39 → EDIP 13:19 → 4WST 15:01 → DCLOUNGE 06-03 13:37
PROVIDERS: ADMIT Internal Medicine; ATTEND Internal Medicine
DX: I11.0 Hypertensive heart disease with heart failure (principal); J18.0 Bronchopneumonia, unspecified organism; J44.0 Chronic obstructive pulmonary disease with (acute) lower respiratory infection; J44.1 Chronic obstructive pulmonary disease with (acute) exacerbation; J96.11 Chronic respiratory failure with hypoxia; I50.43 Acute on chronic combined systolic (congestive) and diastolic (congestive) heart failure; Z88.0 Allergy status to penicillin; Z88.2 Allergy status to sulfonamides; Z88.8 Allergy status to other drugs, medicaments and biological substances; D53.9 Nutritional anemia, unspecified; E78.00 Pure hypercholesterolemia, unspecified; E78.5 Hyperlipidemia, unspecified; F17.200 Nicotine dependence, unspecified, uncomplicated; H35.30 Unspecified macular degeneration; H91.90 Unspecified hearing loss, unspecified ear; I25.10 Atherosclerotic heart disease of native coronary artery without angina pectoris; I25.2 Old myocardial infarction; I25.5 Ischemic cardiomyopathy; I27.20 Pulmonary hypertension, unspecified; I35.0 Nonrheumatic aortic (valve) stenosis; I48.91 Unspecified atrial fibrillation; I73.9 Peripheral vascular disease, unspecified; K21.9 Gastro-esophageal reflux disease without esophagitis; N40.0 Benign prostatic hyperplasia without lower urinary tract symptoms; Z66 Do not resuscitate; Z82.49 Family history of ischemic heart disease and other diseases of the circulatory system; Z83.3 Family history of diabetes mellitus; Z85.46 Personal history of malignant neoplasm of prostate; Z95.0 Presence of cardiac pacemaker; Z95.1 Presence of aortocoronary bypass graft; Z95.5 Presence of coronary angioplasty implant and graft
CPT/HCPCS: 36415; 71045; 80048; 80053; 82607; 83605; 83880; 84484; 85025; 87040; 87070; 87205; 87400; 93005; 93306; 94640; 96365; 99285; G0378; J1644; J1940; J1956; J7060; J7613; J7620; J7512